=== PATIENT | male | born 1935 | race Caucasian/White ===

== ENCOUNTER 2017-10-24 06:47 | Emergency (ER) | payer MEDICARE, OTHER ==
[2017-10-24] MEDS ORDERED: Cyclobenzaprine 10 MG Tab PO ONE (08:01)
[2017-10-24] MEDS ORDERED: Ketorolac 30 MG/ML SDV IM ONE (08:01)
--- NOTE | 2017-10-24 08:04 | EDM.PDOC ---
ED HPI GENERAL MEDICAL PROBLEM - General Chief Complaint: Back Pain or Injury Stated Complaint: BACK PAIN Time Seen by Provider: 10/24/17 07:55 Source of Information: Reports: Patient, RN Notes Reviewed History Limitations: Reports: No Limitations - History of Present Illness INITIAL COMMENTS - FREE TEXT/NARRATIVE: 82-year-old gentleman presents to the emergency department with complaint of low back pain, he states a couple of days ago he was cutting some wood then has been doing a lot of traveling unfortunately over the last 24 hours he's developed low back pain mainly positional, there is no loss of bowel or bladder no fevers, does have a history of this. - Related Data Allergies Allergy/AdvReac Type Severity Reaction Status Date / Time No Known Allergies Allergy Verified 10/24/17 08:03 Home Meds: Home Meds *Citrical 1,200 mg PO DAILY 10/24/17 [History] Mv, Min #36/Iron,Carbonyl/FA [Geritol Complete Tablet] 1 each PO DAILY 10/24/17 [History] Past Medical History HEENT History: Reports: Impaired Vision Oncologic (Cancer) History: Reports: Prostate Dermatologic History: Reports: Eczema - Past Surgical History Other Male Surgeries/Procedures: HX OF PROSTATE CA Other Neurological Surgeries/Procedures: PINCHED NERVE IN BACK Social & Family History - Tobacco Use Smoking Status *Q: Unknown Ever Smoked ED ROS GENERAL - Review of Systems Review Of Systems: See Below Constitutional: Reports: No Symptoms Respiratory: Reports: No Symptoms Cardiovascular: Reports: No Symptoms GI/Abdominal: Reports: No Symptoms Musculoskeletal: Reports: Back Pain Neurological: Reports: No Symptoms ED EXAM,LOWER BACK PAIN/INJURY - Physical Exam Exam: See Below Exam Limited By: No Limitations General Appearance: Alert, WD/WN, No Apparent Distress Respiratory/Chest: No Respiratory Distress Back Exam: Normal Inspection, Decreased Range of Motion, Muscle Spasm, Paraspinal Tenderness, Vertebral Tenderness. No: CVA Tenderness (R), CVA Tenderness (L) DTR - Lower Extremities: 1+: Knee (R), Knee (L) Course - Vital Signs Last Recorded V/S: Last Vital Signs Temp 95.5 F 10/24/17 07:13 Pulse 63 10/24/17 07:13 Resp 16 10/24/17 07:13 BP 140/63 10/24/17 07:13 Pulse Ox 96 06/09/18 07:13 - Orders/Labs/Meds Meds: Medications Discontinued Medications Generic Name Dose Route Start Last Admin Trade Name Matt PRN Reason Stop Dose Admin Cyclobenzaprine HCl 10 mg 10/24/17 08:01 10/24/17 08:06 Flexeril PO 10/24/17 08:02 10 mg ONETIME ONE Administration Ketorolac Tromethamine 30 mg 10/24/17 08:01 10/24/17 08:06 Toradol IM 10/24/17 08:02 30 mg ONETIME ONE Administration Departure - Departure Time of Disposition: 08:29 Disposition: Home, Self-Care 01 Condition: Good Clinical Impression: Low back pain Qualifiers: Chronicity: acute Back pain laterality: midline Sciatica presence: without sciatica Qualified Code(s): M54.5 - Low back pain - Discharge Information Referrals: PCP,None [Primary Care Provider] - Forms: ED Department Discharge Additional Instructions: Use ibuprofen for baseline pain control 600 mg up to 4 times a day as needed, use Flexeril 10 mg by mouth 3 times a day as needed, Please followup with your primary care provider in 3-5 days if not better, please call return to the emergency department with worsening of symptoms. - Assessment/Plan Plan: Assessment Acuity = acute Site and laterality = low back pain Etiology = secondary lifting injury Manifestations = none Location of injury = Home Lab values = none Plan Good improvement combination Toradol and Flexeril discharged home with Flexeril 10 mg by mouth 3 times a day when necessary total #30 follow-up primary care 5- 7 days if no improvement This note was dictated using [employer] voice recognition software please call with any questions on syntax or grammar.
== END 2017-10-24 08:39 | disposition home or self-care (01) ==
LOC: JP.ED 06:47
DX: M54.5 Low back pain (principal); X50.0XXA Overexertion from strenuous movement or load, initial encounter; Z79.899 Other long term (current) drug therapy
CPT/HCPCS: 96372; 99283; A9270; J1885